=== PATIENT | male | born 1970 | race Caucasian/White ===

== ENCOUNTER 2017-07-03 06:53 | Day surgery (SDC) | payer BC ==
[~2017-07-03 06:53] MED LIST: Lactated Ringers 1,000 ML IV SCH; Sodium Chloride 0.9% 10 ML Syringe FLUSH PRN
[2017-07-03] MEDS ORDERED: ceFAZolin 2 GM in Premix Bag 1 BAG IV ONE (07:45)
[2017-07-03] MEDS ORDERED: fentaNYL 100 MCG/2 ML SDV IV ONE (08:00)
[2017-07-03] MEDS ORDERED: Propofol 200 MG/20 ML SDV IV ONE (08:00)
[2017-07-03] MEDS ORDERED: Ketorolac 30 MG/ML SDV IVPUSH ONE (08:00)
[2017-07-03] MEDS ORDERED: Rocuronium 100 MG/10 ML MDV IV ONE (08:00)
[2017-07-03] MEDS ORDERED: Ondansetron 4 MG/2 ML SDV IVPUSH ONE (08:00)
[2017-07-03] MEDS ORDERED: Midazolam 1 MG/ML 2 ML SDV IV ONE (08:00)
[2017-07-03] MEDS ORDERED: Lactated Ringers 1,000 ML IV ONE (08:00)
[2017-07-03] MEDS ORDERED: Bupivacaine 0.5% 30 ML SDV INJECT ONE (08:19)
[2017-07-03] MEDS ORDERED: Lidocaine 1% with EPINEPHrine 1:100,000 20 ML MDV INJECT ONE (08:19)
--- NOTE | 2017-07-03 08:38 | PREOP ---
ADMISSION DATE: 07/03/2017 CHIEF COMPLAINT: Umbilical hernia. HISTORY OF PRESENT ILLNESS: This is a 46-year-old white male who was referred with approximately a month's history of a symptomatic umbilical hernia. It is reducible. It does cause some issues with tightness and spasm. He denies any issues with constipation, nausea, vomiting, or chronic cough. He does note a slight increase in urination as well. PAST MEDICAL HISTORY: Significant for unspecified asthma, history of gastroesophageal reflux disease, dysthymic disorder, cervicalgia secondary to cervical intervertebral disk degeneration, and obesity. PAST SURGICAL HISTORY: Significant for arthrodesis of the cervical spine. CURRENT MEDICATIONS: 1. Prozac 20 mg daily. 2. Advair Diskus 250/50 mcg per dose 1 puff 1 time per day. 3. Prozac 40 mg daily. 4. Albuterol inhaler 108 mcg 2 puffs every 4 to 6 hours as needed for shortness of breath. ALLERGIES: He reports an allergy to penicillin, cat dander, and pollen. FAMILY HISTORY: Significant for heart failure with his father, and lung disease and asthma with his mother and brother. He is . He has 2 children. He does not smoke, has an occasional drink. REVIEW OF SYSTEMS: The patient denies any constitutional issues. HEENT, respiratory, cardiovascular, gastrointestinal, other than those mentioned in the history and physical. PHYSICAL EXAMINATION: GENERAL: This is a well-developed, well-nourished white male, appearing in no acute distress. HEENT: Grossly normal. LUNGS: Clear to auscultation. HEART: Regular rate and rhythm. ABDOMEN: Reveals normoactive bowel sounds with a reducible umbilical hernia. ASSESSMENT: Umbilical hernia. PLAN: Umbilical hernia repair with mesh. Procedure and risks explained to the patient to include bleeding, infection, injury to the underlying intestine. The patient expresses understanding and he asked us to proceed. /[id number] /MODL
--- NOTE | 2017-07-03 08:46 | PCM.OPNOTE ---
- General Post-Op/Procedure Note Date of Surgery/Procedure: 07/03/17 Operative Procedure(s): umbilical hernia repair with mesh Findings: 2 cm defect Pre Op Diagnosis: umbilical hernia Post-Op Diagnosis: Same Anesthesia Technique: General LMA, Local (10 ml 1 % lido with epi/0.5% buvipicaine) Primary Surgeon: Austen Leung Anesthesia Provider: Rosendo Sommers Pathology: none Complications: None Condition: Good Free Text/Narrative:: see dictation #[id number]
--- NOTE | 2017-07-03 09:25 | OR ---
DATE OF OPERATION: 07/03/2017 SURGEON: Austen Leung MD PROCEDURE PERFORMED: Umbilical hernia repair with mesh. PREOPERATIVE DIAGNOSIS: Umbilical hernia. POSTOPERATIVE DIAGNOSIS: Umbilical hernia. INDICATIONS FOR PROCEDURE: This is a 46-year-old white male with a symptomatic umbilical hernia. The patient was offered and accepted the same. INTRAOPERATIVE FINDINGS: As follows: The patient was noted to have approximately a 2 cm defect. This was repaired with a Ventralex ST hernia patch, reference #[id number], lot #[id number] with an expiration date of 07/09/2018. This was 4.3 cm in diameter patch. A 10 mL of 1:1 mixture of 1% lidocaine with epinephrine 0.5% bupivacaine was used during our procedure. DESCRIPTION OF PROCEDURE: After an excellent LMA anesthetic was administered, the patient was prepped and draped in the usual sterile manner. I started the procedure by doing a field block around the area of the umbilicus with our local. A curvilinear incision was made at the base of the umbilicus and dissection was carried out with a combination of sharp and electrocautery. Hernia sac was then transected from the base of the umbilicus. The sac was opened. The omentum was reduced. Hernia sac was transected from the surrounding tissue and a plane was developed exposing the perineum over the anterior abdominal wall posteriorly and ensuring that it was free from fat. The mesh was inserted into the defect. The defect was then closed with a running 0 Prolene incorporating our tails, which were then transected. The wound was irrigated. The skin was then closed with joshua. Needle, sponge, and instrument counts were reported as correct. The patient was taken to recovery room in good condition. /[id number] /MODL
[2017-07-03] MEDS ORDERED: Acetaminophen/HYDROcodone 325-5 MG Tab PO ONE (10:28)
== END 2017-07-03 11:20 | disposition home or self-care (01) ==
LOC: FB.SDS 06:53
PROVIDERS: ATTEND Surgery
DX: K42.9 Umbilical hernia without obstruction or gangrene (principal); J45.909 Unspecified asthma, uncomplicated; E66.9 Obesity, unspecified; Z68.36 Body mass index [BMI] 36.0-36.9, adult; K21.9 Gastro-esophageal reflux disease without esophagitis; Z79.899 Other long term (current) drug therapy; Z88.0 Allergy status to penicillin; Z91.048 Other nonmedicinal substance allergy status
CPT/HCPCS: A9270-GY; C1781; J0690; J1885; J2250; J2405; J2704; J3010; J7120